=== PATIENT | female | born 1945 | race Caucasian/White ===

== ENCOUNTER → 2017-06-21 | Outpatient (CLI) | payer OTHER, MEDICARE ==
--- NOTE | ~2017-06-21 | P ---
[facility] [place] [address] PROCEDURE REPORT Name: NIKKI,GEETA Farshad Room #: REG [facility]#: [id number] Admission: 06/21/17 Attend Phys: Hawk Colvin Discharge: Date of : 43 Report #: [id number] THIS REPORT FOR: //name// CC: Hawk Knapp DO DATE OF SERVICE: 06/21/2017 PROCEDURE PERFORMED: Colonoscopy. HISTORY OF PRESENT ILLNESS: The patient reports intermittent small amount of bright red blood per rectum with wiping at times. She does have a history of chronic constipation. Last colonoscopy was in 2011. I do not have the results of that report. DESCRIPTION OF PROCEDURE: The risks and benefits of the procedure were explained to the patient, those risks including but not limited to bleeding, perforation, the risk of sedation. She understood these risks and gave informed consent. Sedation was given using propofol per anesthesia. Next, a digital rectal exam was initially performed, which was normal. Next, using a standard Fujinon colonoscope, the scope was placed in the patient's anus and advanced under direct vision to the cecum. The overall prep was good in most areas, but was somewhat fair in areas washings and aspirations were performed. The visualized portion of the cecum was normal. The ileocecal valve was normal. The ascending, transverse, descending and sigmoid colon were normal. The rectal mucosa was normal. On retroflexion, small nonbleeding internal hemorrhoids were noted, otherwise normal colonoscopy. The scope was then withdrawn and the procedure terminated. The patient tolerated the procedure well. IMPRESSION: 1. Small internal hemorrhoids, likely source of intermittent bright red blood per rectum. 2. Otherwise, normal colonoscopy. RECOMMENDATIONS: 1. Would recommend a trial of daily MiraLax. 2. Repeat colonoscopy in 10 years. Thank you for allowing me to participate in her care. By: [id number] Hawk Beckman MD /nt
--- NOTE | ~2017-06-21 | P ---
[facility] [place] [address] PROCEDURE REPORT Name: GEETA JORDAN Room #: REG [facility]#: [id number] Admission: 06/21/17 Attend Phys: Hawk Colvin Discharge: Date of : 43 Report #: [id number] THIS REPORT FOR: //name// CC: Hawk Knapp DO DATE OF SERVICE: 06/21/2017 PROCEDURE PERFORMED: Upper endoscopy with biopsies and esophageal dilation. HISTORY OF PRESENT ILLNESS: The patient is a 71-year-old female who reports intermittent heartburn symptoms as well as dysphagia to pills, previous history of gastric polyps. Plan is for EGD. DESCRIPTION OF PROCEDURE: The risks and benefits of the procedure were explained to the patient, those risks including but not limited to bleeding, perforation, the risk of sedation. She understood these risks and gave informed consent. Sedation was given using propofol per anesthesia. Next, using a standard Fujinon upper endoscope, the scope was placed in the patient's mouth and advanced under direct vision through the esophagus, stomach and into the second portion of the duodenum. The larynx was normal in appearance. There was mild narrowing in the upper esophagus, mid esophagus was normal. GE junction showed grade A erosive esophagitis. No stricture. Overall, the gastric mucosa was normal in the fundus and body. There were several erosions and a mild gastritis noted in the antrum. Biopsies were obtained to rule out H. pylori. The pylorus was normal and patent. The duodenal bulb, first and second portion were all normal. The scope was then brought back up in the patient's stomach and a Savary guidewire was inserted through the scope, leaving the guidewire in place as the scope was then withdrawn. Next, a 48-Amharic Savary dilation of the esophagus was performed without difficulty. The wire and dilator removed. The scope was reintroduced into the patient's stomach. There was a small mucosal tear noted in the upper esophagus. No evidence of bleeding. The scope was then withdrawn and the procedure terminated. The patient tolerated the procedure well. IMPRESSION: 1. Mild narrowing upper esophagus, status post dilation. 2. Grade A erosive esophagitis. 3. Gastric erosions with gastritis. RECOMMENDATIONS: 1. Await biopsy results. 2. Observe the patient post-dilation. 3. Would recommend daily PPI therapy. [address] [address] PROCEDURE REPORT Name: GEETA JORDAN Room #: REG [facility]#: [id number] Admission: 06/21/17 Attend Phys: Hawk Colvin Discharge: Date of : 43 Report #: [id number] Thank you for allowing me to participate in her care. By: [id number] Hawk Beckman MD /nt
--- NOTE | ~2017-06-21 | S ---
[facility] [place] [address] SURGICAL PATH RPT PROCEDURE Name: NIKKIGEETA Farshad Room #: REG [facility].#: [id number] Admission: 06/21/17 Date of : 43 Discharge: Report #: [id number] Path Case #: [id number] PATHOLOGY REPORT COLLECTION DATE: 06/21/2017 RECEIVED DATE: 06/21/2017 SUBMITTING PHYS: Dr. Hawk Beckman OTHER PHYS: Dr. Angeli Knapp SPECIMEN(S) RECEIVED: A.Bx gastritis R/O H pylori * * * * * * * * * * * * FINAL DIAGNOSIS: Gastric mucosa, gastritis, endoscopic biopsy: - Mild reactive gastropathy. - Negative for intestinal metaplasia or atrophy. - Negative for Helicobacter pylori. COMMENT: Well controlled Helicobacter pylori immunohistochemical stain performed on block A1 - negative. (IUV:pit; 06/22/2017) PATHOLOGIST: Anabella Mortensen M.D. REPORT ELECTRONICALLY SIGNED BY: Anabella Mortensen M.D. DATE/TIME: 06/22/2017 15:15 * * * * * * * * * * * * GROSS PATHOLOGY: Received in formalin labeled "MELCHOR Sosa gastritis," are 3 segments of romero soft tissue measuring 1.3 x 0.6 x 0.4 cm in aggregate dimensions and ranging from 0.3 to 0.5 cm in maximum dimension. The specimen is submitted entirely in cassette A1. (TSD; 06/21/2017) CLINICAL HISTORY: Pre-OP DX: GERD, gastric polyps Post-OP DX: Gastritis, esophagitis, dysphagia INITIAL CPT CODE(S): A; 11312, 23940 Professional services performed by [facility] at [facility] [address] , [place] [address] [facility] [address] [place] [address] SURGICAL PATH RPT PROCEDURE Name: GEETA JORDAN Room #: REG [facility]#: [id number] Admission: 06/21/17 Date of : 43 Discharge: Report #: [id number] Path Case #: [id number] [facility] at [address] [place] [address], [facility] [address] [address]. [facility] [address] [place] [address] PHONE: [phone] DIRECTOR: Blayne Arora M.D. * * * END OF REPORT * * *
== END | disposition home or self-care (01) ==
LOC: GI 09:07
DX: K64.8 Other hemorrhoids (principal); R13.19 Other dysphagia; K22.10 Ulcer of esophagus without bleeding; K31.9 Disease of stomach and duodenum, unspecified; Z87.19 Personal history of other diseases of the digestive system
CPT/HCPCS: 62110; 62900